=== PATIENT | male | born 1995 | race Caucasian/White ===

== ENCOUNTER 2018-06-22 12:41 | Emergency (ER) | payer BC ==
--- NOTE | 2018-06-22 14:27 | EDM.PDOC ---
Scribed by Ely Brandon 06/22/18 1427 for Thanh Priest PA ED HPI GENERAL MEDICAL PROBLEM - General Chief Complaint: Fever Stated Complaint: CHILLS, NOT FEELING GOOD Time Seen by Provider: 06/22/18 13:56 Source of Information: Reports: Patient, RN, RN Notes Reviewed History Limitations: Reports: No Limitations - History of Present Illness INITIAL COMMENTS - FREE TEXT/NARRATIVE: Patient is a 22-year-old male who presents with chills and fever since Saturday. He developed a sore in his mouth last night. He took DayQuil and Nyquil. Onset Date: 06/20/18 Duration: Getting Worse Location: Reports: Other (mouth) Quality: Reports: Ache Severity: Mild Improves with: Reports: None Worsens with: Reports: None Associated Symptoms: Reports: No Other Symptoms - Related Data Allergies Allergy/AdvReac Type Severity Reaction Status Date / Time No Known Allergies Allergy Verified 06/22/18 13:19 Home Meds: Home Meds . [No Known Home Meds] 06/22/18 [History] Past Medical History HEENT History: Reports: Impaired Vision Cardiovascular History: Reports: None Respiratory History: Reports: None Gastrointestinal History: Reports: None Genitourinary History: Reports: None Musculoskeletal History: Reports: None Neurological History: Reports: None Psychiatric History: Reports: None Endocrine/Metabolic History: Reports: None Hematologic History: Reports: None Immunologic History: Reports: None Oncologic (Cancer) History: Reports: None Dermatologic History: Reports: None Social & Family History - Family History Family Medical History: Noncontributory - Tobacco Use Smoking Status *Q: Never Smoker Second Hand Smoke Exposure: No - Caffeine Use Caffeine Use: Reports: None - Alcohol Use Days Per Week of Alcohol Use: 3 Number of Drinks Per Day: 2 Total Drinks Per Week: 6 - Recreational Drug Use Recreational Drug Use: No ED ROS ENT - Review of Systems Review Of Systems: ROS reveals no pertinent complaints other than HPI. ED EXAM, ENT - Physical Exam Exam: See Below Exam Limited By: No Limitations General Appearance: Alert, WD/WN, No Apparent Distress Eye Exam: Bilateral Eye: EOMI, Normal Inspection, PERRL Ears: Normal External Exam, Normal Canal, Hearing Grossly Normal, Normal TMs Nose: Normal Inspection, Normal Mucousa, No Blood Mouth/Throat: Other (left posterior lower jaw erythema (? where wisdom tooth is) .) Head: Atraumatic, Normocephalic Neck: Normal Inspection, Supple, Non-Tender, Full Range of Motion Respiratory/Chest: No Respiratory Distress, Lungs Clear, Normal Breath Sounds, No Accessory Muscle Use, Chest Non-Tender Cardiovascular: Normal Peripheral Pulses, Regular Rate, Rhythm, No Edema, No Gallop, No JVD, No Murmur, No Rub GI/Abdominal: Normal Bowel Sounds, Soft, Non-Tender, No Organomegaly, No Distention, No Abnormal Bruit, No Mass (Male) Exam: Deferred Rectal (Males) Exam: Deferred Back: Normal Inspection, Full Range of Motion Extremities: Normal Inspection, Normal Range of Motion, Non-Tender, No Pedal Edema, Normal Capillary Refill Neurological: Alert, Oriented, CN II-XII Intact, Normal Cognition, Normal Gait, Normal Reflexes, No Motor/Sensory Deficits Psychiatric: Normal Affect, Normal Mood Skin: Warm, Dry, Intact, Normal Color, No Rash Lymphatic: No Adenopathy Course - Vital Signs Last Recorded V/S: Last Vital Signs Temp 37.8 C 06/22/18 13:20 Pulse 100 06/22/18 13:20 Resp 18 06/22/18 13:20 BP 144/77 H 06/22/18 13:20 Pulse Ox 99 06/22/18 13:20 - Orders/Labs/Meds Labs: Laboratory Tests 06/22/18 Range/Units 14:05 WBC 3.6 L (5.0-10.0) 10^3/uL RBC 5.66 (4.6-6.2) 10^6/uL Hgb 16.1 (14.0-18.0) g/dL Hct 47.8 (40.0-54.0) % MCV 84.5 (80-100) fL MCH 28.4 (27.0-34.0) pg MCHC 33.7 (33.0-35.0) g/dL Plt Count 138 L (150-450) 10^3/uL Neut % (Auto) 59.0 (42.2-75.2) % Lymph % (Auto) 29.6 (20.5-50.1) % [place] % (Auto) 10.8 H (2-8) % Eos % (Auto) 0.0 L (1.0-3.0) % Baso % (Auto) 0.6 (0.0-1.0) % Departure - Departure Time of Disposition: 14:25 Disposition: Home, Self-Care 01 Condition: Fair Clinical Impression: Dental abscess - Discharge Information *PRESCRIPTION DRUG MONITORING PROGRAM REVIEWED*: Not Applicable *COPY OF PRESCRIPTION DRUG MONITORING REPORT IN PATIENT SCOTT: Not Applicable Instructions: Dental Abscess, [id number] Forms: ED Department Discharge Care Plan Goals: The patient was advised of the examination and lab results during the visit. The patient was given a script for Clindamycin (300 mg) to take 1 by mouth 4 times per day for 10 days. If the patient has any additional symptoms or concerns, the patient should follow-up with his dentist or return to the emergency department. I have read and agree with the documentation that has been completed regarding this visit. By signing this record, I attest that the documentation was completed in my physical presence and is an accurate record of the encounter.
== END 2018-06-22 14:31 | disposition home or self-care (01) ==
LOC: DL.ED 12:41
DX: K04.7 Periapical abscess without sinus (principal)
CPT/HCPCS: 36415; 85025; 99283

== ENCOUNTER 2019-04-29 03:01 | Emergency (ER) | payer BC ==
[2019-04-29] MEDS ORDERED: Ondansetron 4 MG Tab.DIS PO ONE ×2 (03:02→03:18)
--- NOTE | 2019-04-29 03:24 | EDM.PDOC ---
ED HPI GENERAL MEDICAL PROBLEM - General Chief Complaint: Head Injury Stated Complaint: CONCUSSION? Time Seen by Provider: 04/29/19 03:15 Source of Information: Reports: Patient History Limitations: Reports: No Limitations - History of Present Illness INITIAL COMMENTS - FREE TEXT/NARRATIVE: This 23 yo male patient reports to the ED after falling and [place] The patient reports he slipped on the slippery ramp landing directly on his head. The patient reports he initially did not have any symptoms. The patient woke up at about 0130 with nausea, vomited and fell out of bed. The patient's friend reports the patient's balance was off while at the house. The patient reports he continues to feel dizzy and nauseated. The patient also feels extremely tired. The patient denies any loss of consciousness before, during or after the fall. Onset Date: 04/28/19 Duration: Constant Location: Reports: Head (posterior head pain) Quality: Reports: Ache, Dull Severity: Moderate Improves with: Reports: None Worsens with: Reports: None Context: Reports: Trauma (ground level fall) Associated Symptoms: Reports: Headaches, Nausea/Vomiting, Other (dizziness) Occipital Pain Score (Numeric/FACES): 2 - Related Data Allergies Allergy/AdvReac Type Severity Reaction Status Date / Time No Known Allergies Allergy Verified 04/29/19 03:09 Home Meds: Home Meds . [No Known Home Meds] 06/22/18 [History] Past Medical History HEENT History: Reports: Impaired Vision Cardiovascular History: Reports: None Respiratory History: Reports: None Gastrointestinal History: Reports: None Genitourinary History: Reports: None Musculoskeletal History: Reports: None Neurological History: Reports: None Psychiatric History: Reports: None Endocrine/Metabolic History: Reports: None Hematologic History: Reports: None Immunologic History: Reports: None Oncologic (Cancer) History: Reports: None Dermatologic History: Reports: None Social & Family History - Family History Family Medical History: Noncontributory - Tobacco Use Smoking Status *Q: Never Smoker - Caffeine Use Caffeine Use: Reports: None - Recreational Drug Use Recreational Drug Use: No ED ROS GENERAL - Review of Systems Review Of Systems: ROS reveals no pertinent complaints other than HPI. ED EXAM, HEAD INJURY - Physical Exam Exam: See Below Exam Limited By: No Limitations General Appearance: Alert, WD/WN, Moderate Distress Head: Scalp Tenderness (posterior ) Nexus Criteria: No: Posterior, Midline Cervical Tenderness, Evidence of Intoxication, Altered Level of Consciousness, Focal Neurological Deficit, Painful Distraction Injuries Eyes: Bilateral Eye: EOMI, Normal Inspection, PERRL Ears: Normal External Exam, Normal Canal, Hearing Grossly Normal, Normal TMs Nose: Normal Inspection, Normal Mucousa, No Blood Throat/Mouth: Normal Inspection, Normal Lips, Normal Teeth, Normal Gums, Normal Oropharynx, Normal Voice, No Airway Compromise Neck: Non-Tender, Full Range of Motion, Normal Alignment, Normal Inspection Respiratory: No Respiratory Distress, Lungs Clear, Normal Breath Sounds, No Accessory Muscle Use, Chest Non-Tender Cardiovascular: Normal Peripheral Pulses, Regular Rate, Rhythm, No Edema, No Gallop, No JVD, No Murmur, No Rub GI/Abdominal Exam: Normal Bowel Sounds, Soft, Non-Tender, No Organomegaly, No Distention, No Abnormal Bruit, No Mass (Male) Exam: Deferred Rectal (Males) Exam: Deferred Back Exam: Full Range of Motion, Normal Inspection, NT Extremities: Normal Inspection, Normal Range of Motion, Non-Tender, No Pedal Edema, Normal Capillary Refill Neurologic: wash operator II-XII nml As Tested, No Motor/Sensory Deficits, Alert, Normal Mood/Affect, Oriented x 3 Skin: Normal Color, Warm/Dry - [place] Coma Score Best Eye Response (Nas): (4) Open Spontaneously Best Verbal Response (Nas): (5) Oriented Best Motor Response (Nas): (6) Obeys Commands [place] Total: 15 Course - Vital Signs Last Recorded V/S: Last Vital Signs Temp 36.1 C 04/29/19 03:15 Pulse 85 04/29/19 03:22 Resp 16 04/29/19 03:22 BP 115/81 04/29/19 03:22 Pulse Ox 98 04/29/19 03:22 - Orders/Labs/Meds Meds: Medications Discontinued Medications Generic Name Dose Route Start Last Admin Trade Name Freq PRN Reason Stop Dose Admin Ondansetron HCl 4 mg 04/29/19 03:18 04/29/19 03:22 Zofran Odt PO 04/29/19 03:19 4 mg ONETIME ONE Administration Departure - Departure Time of Disposition: 03:51 Disposition: Home, Self-Care 01 Condition: Fair Clinical Impression: Concussion injury of brain - Discharge Information *PRESCRIPTION DRUG MONITORING PROGRAM REVIEWED*: Not Applicable *COPY OF PRESCRIPTION DRUG MONITORING REPORT IN PATIENT SCOTT: Not Applicable Instructions: Concussion, Adult, [id number] Forms: ED Department Discharge Care Plan Goals: The patient was advised of the examination and CT results during the visit. The patient was given an oral dose of Zofran while in the ED. The patient was discharged with Zofran ODT (4 mg) #2 to take 1 by mouth every 6 hours as needed and a script for Zofran (4 mg) #12 to take 1 by mouth every 6 hours as needed. If the patient has any additional symptoms or concerns, the patient should either return to the emergency department or visit his primary care facility.
[2019-04-29] MEDS ORDERED: Ondansetron 4 MG Tab.DIS ONE (03:52)
== END 2019-04-29 03:59 | disposition home or self-care (01) ==
LOC: DL.ED 03:01
DX: S06.0X0A Concussion without loss of consciousness, initial encounter (principal); R40.2410 Glasgow coma scale score 13-15, unspecified time; W19.XXXA Unspecified fall, initial encounter; W22.8XXA Striking against or struck by other objects, initial encounter
CPT/HCPCS: 70450; 99283; A9270

== ENCOUNTER 2022-03-19 20:26 | Emergency (ER) | payer BC ==
[2022-03-19] MEDS ORDERED: methylPREDNISolone Sodium Succinate 125 MG/2 ML SDV IM ONE (20:48)
[2022-03-19] MEDS ORDERED: Orphenadrine 60 MG/2 ML Inj IM ONE (20:48)
== END 2022-03-19 21:58 | disposition home or self-care (01) ==
LOC: DL.ED 20:26
DX: M54.6 Pain in thoracic spine (principal); G89.11 Acute pain due to trauma
CPT/HCPCS: 71100; 72072; 96372; 99283; J2360; J2930

== ENCOUNTER 2023-05-28 18:29 | Emergency (ER) | payer BC | END 2023-05-28 19:38 | disposition left against medical advice (07) | LOC: DL.ED 18:29 | DX: Z53.21 Procedure and treatment not carried out due to patient leaving prior to being seen by health care provider (principal) ==